=== PATIENT | male | born 1970 | race Caucasian/White ===

== ENCOUNTER 2020-01-15 11:24 | Emergency (ER) | payer BC, SELFPAY ==
[2020-01-15] VITALS (7 sets, daily range): BP systolic 123–144; BP diastolic 86–98; PULSE 61–77; RESP 10–18; TEMP 36.6; O2SAT 97–100
--- NOTE | ~2020-01-15 | XR_ITS ---
XR chest 2V DATE: 01/15/2020 12:04 INDICATION: Left chest pain. Shortness of breath. Smoker. Weakness. TECHNIQUE: PA and lateral views COMPARISON: 03/06/2018 2 view chest FINDINGS: Bilateral hyperinflation. No pulmonary infiltrate or consolidation, pleural effusion or pul monary vascular or pneumothorax. Normal heart size. No hilar or mediastinal enlargement. IMPRESSION: Bilateral hyperinflation consistent with history of COPD No active cardiopulmonary disease Reviewed, dictated and finalized at location A. IAL INVESTIGATOR
--- NOTE | 2020-01-15 11:32 | ECG_ITS ---
Measurements Intervals [place] Rate: 77 P: 73 OK: 148 QRS: -79 QRSD: 97 T: 55 QT: 358 QTc: 407 Interpretive Statements SINUS RHYTHM VENTRICULAR PREMATURE COMPLEXES POSSIBLE LEFT ATRIAL ENLARGEMENT INCOMPLETE RIGHT BUNDLE BRANCH BLOCK LEFT ANTERIOR FASCICULAR BLOCK ABNORMAL ECG Electronically Signed On 01-15-2020 16:05:48 COLLAR BASTER by Dell Olmos D.O.
--- NOTE | 2020-01-15 11:45 | ED.GENADULT ---
HPI - General Adult General Chief complaint: Chest Pain Stated complaint: cp/irregular pulse/sob Time Seen by Provider: 01/15/20 11:34 History of Present Illness HPI narrative: Patient is a 49-year-old male who presents ER with concerns for chest pain and irregular heartbeat. Reports last night 8 PM he began having some intermittent chest pain on the left side over his pectoralis. It will last for 1 minute then go away for 5 minutes or 20 minutes and return. No known injury. No exertional component. Tried Tylenol and ibuprofen without relief. Today he is taking his pulse and realized he was missing beats and he was only feels heartbeat and runs of 2-3 at a time. Unsure if it correlates with his chest pain. No lightheadedness or dizziness. Mild shortness of breath due to this. No runny nose/sore throat/productive cough. No known Covid contacts. No loss of taste or smell. Related Data Home Medications Medication Instructions Recorded Confirmed No Home Medications 01/15/20 01/15/20 Allergies Allergy/AdvReac Type Severity Reaction Status Date / Time Penicillins Allergy Unknown Vomiting Verified 01/15/20 11:40 Review of Systems Review of Systems: All systems reviewed & are unremarkable except as noted in HPI and below Constitutional: Constitutional: Denies chills, Denies fever(s) and Denies weakness Cardiovascular: Cardiovascular: Reports chest pain, Denies rapid heart rate and Denies radiating jaw, neck or arm pain Comments: Palpitations Respiratory: Respiratory: Denies cough and Reports dyspnea Gastrointestinal: Gastrointestinal: Denies nausea and Denies vomiting PMFSH Past Medical History Medical History (Updated 01/15/20 @ 13:13 by Berry Torres MD) Healthy adult male Surgical History Surgical History (Updated 01/15/20 @ 11:47 by Berry Torres MD) No history of previous surgery Family History Family History (Updated 05/26/16 @ 23:56 by DOCTOR UNKNOWN) Sibling Family history of gastrointestinal disorder Mother Family history of chronic obstructive pulmonary disease Father Family history of renal failure, Onset Age: 54 Patient's father is Social History Social History Smoking status: Heavy tobacco smoker Alcohol intake: current Gender identity (if verbalized by the patient): Male Exam Narrative: Exam Narrative: GENERAL: Well-appearing, well-nourished, and in no acute distress. HEAD: Normocephalic, atraumatic. CHEST: Clear to auscultation. No respiratory distress. 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 Normal peripheral pulses. ABDOMEN: Soft, nontender, nondistended. EXTREMITIES: Normal range of motion. No edema. SKIN: Warm, dry, no rash. NEURO: Alert and oriented x3. PSYCH: Normal mood and affect. Course Course Emergency Course: Patient informed of results. Chest pain is quite atypical. Troponin negative. PVCs of slow down. Recommend follow-up with PCP. May require outpatient Holter monitor if needed. Vital Signs Vital signs: Vital Signs Temperature 97.8 F 01/15/20 11:33 Pulse Rate 69 01/15/20 11:33 Respiratory Rate 18 01/15/20 11:33 Blood Pressure 144/98 H 01/15/20 11:33 Pulse Oximetry 100 01/15/20 11:33 Temperature 97.8 F 01/15/20 11:33 Pulse Rate 73 01/15/20 11:33 Respiratory Rate 18 01/15/20 11:33 Blood Pressure 144/98 H 01/15/20 11:33 Pulse Oximetry 100 01/15/20 11:33 Medical Decision Making Vital Signs Vital Signs: Vital Signs Temperature 97.8 F 01/15/20 11:33 Pulse Rate 69 01/15/20 11:33 Respiratory Rate 18 01/15/20 11:33 Blood Pressure 144/98 H 01/15/20 11:33 Pulse Oximetry 100 01/15/20 11:33 Temperature 97.8 F 01/15/20 11:33 Pulse Rate 73 01/15/20 11:33 Respiratory Rate 18 01/15/20 11:33 Blood Pressure 144/98 H 01/15/20 11:33 Pulse Oximetry 100
[2020-01-15] MEDS: ASPIRIN 81 MG CHEWABLE TABLET 324 MG PO (11:57)
[2020-01-15] MEDS: KETOROLAC 15 MG/ML VIAL (*BKC) IV PUSH (11:58)
[2020-01-15 12:00] LABS: Basophils Absolute Auto 0.1 K/mm3 (0.0-0.1); Basophils Percent Auto 1.4 % (0.2-1.2); Eosinophils Absolute Auto 0.4 K/mm3 (0-0.3); Eosinophils Percent Auto 4.6 % (0-4.4); Hematocrit 45.1 % (42.0-52.0); Hemoglobin 15.7 g/dL (14.0-18.0); Immature Granulocyte Absolute 0.02 K/mm3 (0.00-0.031); Immature Granulocyte Percent A 0.2 % (0-0.5); Lymphocytes Absolute Auto 3.67 K/mm3 (0.9-3.2); Mean Corpuscular HGB Conc 34.8 g/dl (32-36); Mean Corpuscular Hemoglobin 31.7 pg (26-34); Mean Corpuscular Volume 91.1 fl (80-100); Mean Platelet Volume 9.6 fl (7.4-10.4); Monocytes Absolute Auto 0.8 K/mm3 (0.1-0.6); Neutrophils Absolute Auto 4.4 K/mm3 (1.3-6.7); Neutrophils Percent Auto 46.8 % (45.5-73.1); Platelet Count Result 206 k/mm3 (150-375); Red Blood Count 4.95 M/mm3 (4.6-6.20); Red Cell Distribution Width 12.7 % (11.5-14.5); White Blood Count 9.4 K/mm3 (4.5-10.0)
[2020-01-15 12:08] LABS: INR 0.9
[2020-01-15 12:11] LABS: Anion Gap 8 mmol/L (8-16); Blood Urea Nitrogen 17 mg/dL (9-20); Calcium 9.3 mg/dL (8.4-10.2); Carbon Dioxide 28 mmol/L (22-30); Chloride 104 mmol/L (98-107); Estimated CRCL calculation 85 ml/min; Estimated Glomerular Filt Rate > 60; Glucose 93 mg/dL (75-110); Magnesium 2.1 mg/dL (1.6-2.3); Potassium 4.3 mmol/L (3.4-5.0); Sodium 140 mmol/L (137-145)
[2020-01-15 12:22] LABS: Troponin I < 0.012 ng/mL (0.000-0.034)
== END 2020-01-15 13:50 | disposition home or self-care (01) ==
PROVIDERS: Emergency Provider Emergency Medicine; PCP Family Medicine
DX: R07.89 Other chest pain (principal); I49.3 Ventricular premature depolarization; F17.200 Nicotine dependence, unspecified, uncomplicated; I45.2 Bifascicular block; R94.31 Abnormal electrocardiogram [ECG] [EKG]
CPT/HCPCS: 36415; 71046; 80048; 83735; 84484; 85025; 85610; 85730; 93005; 96374; 99284; A9270; J1885

== ENCOUNTER 2020-02-25 18:29 | Emergency (ER) | payer BC, SELFPAY ==
[2020-02-25 19:00] VITALS: BP 128/95; PULSE 66; RESP 16; TEMP 36.4; O2SAT 100
--- NOTE | 2020-02-25 19:04 | ED.ABDPAIN ---
HPI - Abdominal Pain General Chief Complaint: Unspecified <Kareem Rojas PA-C - Last Filed: 02/25/20 19:13> Stated Complaint: not feeling good. needs cleared for work <Kareem Rojas PA-C - Last Filed: 02/25/20 19:13> Time Seen by Provider: 02/25/20 18:32 <Kareem Rojas PA-C - Last Filed: 02/25/20 19:13> Source: patient <Kareem Rojas PA-C - Last Filed: 02/25/20 19:13> Mode of arrival: ambulatory <Kareem Rojas PA-C - Last Filed: 02/25/20 19:13> Limitations: no limitations <Kareem Rojas PA-C - Last Filed: 02/25/20 19:13> History of Present Illness HPI narrative: Patient is a 49-year-old male who presents to emergency department for evaluation of waking up this morning with GI upset that was short-lived and resolved on arrival patient has no symptoms denies any complaints notes that yesterday felt fine denies vomiting diarrhea rectal bleeding melena or hematemesis or URI symptom. <Kareem Rojas PA-C - Last Filed: 02/25/20 19:13> Related Data Home Medications: Home Medications Medication Instructions Recorded Confirmed No Home Medications 01/15/20 01/15/20 <Kareem Rojas PA-C - Last Filed: 02/25/20 19:13> Allergies/Adverse Reactions: Allergies Allergy/AdvReac Type Severity Reaction Status Date / Time Penicillins Allergy Unknown Vomiting Verified 01/15/20 11:40 <Kareem Rojas PA-C - Last Filed: 02/25/20 19:13> Review of Systems Review of Systems: All systems reviewed & are unremarkable except as noted in HPI and below <Kareem Rojas PA-C - Last Filed: 02/25/20 19:13> [facility] Past Medical History Medical History: Medical History Healthy adult male <Kareem Rojas PA-C - Last Filed: 02/25/20 19:13> Surgical History Surgical History: Surgical History No history of previous surgery <Kareem Rojas PA-C - Last Filed: 02/25/20 19:13> Family History Family History: Family History (Updated 05/26/16 @ 23:56 by DOCTOR UNKNOWN) Sibling Family history of gastrointestinal disorder Mother Family history of chronic obstructive pulmonary disease Father Family history of renal failure, Onset Age: 54 Patient's father is <Kareem Rojas PA-C - Last Filed: 02/25/20 19:13> Social History Social History: Social History Smoking status: Heavy tobacco smoker Alcohol intake: current Gender identity (if verbalized by the patient): Male <Kareem Rojas PA-C - Last Filed: 02/25/20 19:13> Exam Narrative: Exam Narrative: GENERAL: Well-appearing, well-nourished, and in no acute distress. HEAD: Normocephalic, atraumatic. EYES: PERRLA and EOMI. ENT: Nares clear, no rhinorrhea or epistaxis. Mucous membranes moist. CHEST: Clear to auscultation. No respiratory distress. No wheezes rales or rhonchi HEART: Regular rate and rhythm. No murmur heard. Normal peripheral pulses. ABDOMEN: Soft, nontender, nondistended EXTREMITIES: Normal range of motion. No edema. SKIN: Warm, dry, no rash. NEURO: No focal deficits. Alert and oriented x3. PSYCH: Normal mood and affect. <Kareem Rojas PA-C - Last Filed: 02/25/20 19:13> Course Course Emergency Course: Patient in the ER no complaints symptoms resolved nontender abdominal exam felt appropriate for discharge home <Kareem Rojas PA-C - Last Filed: 02/25/20 19:13> Vital Signs Vital signs: Vital Signs Temperature 36.4 C L 02/25/20 19:00 Pulse Rate 66 02/25/20 19:00 Respiratory Rate 16 02/25/20 19:00 Blood Pressure 128/95 H 02/25/20 19:00 Pulse Oximetry 100 02/25/20 19:00 Temperature 36.4 C L 02/25/20 19:00 Pulse Rate 66 02/25/20 19:00 Respiratory Rate 16 02/25/20 19:00 Blood Pressure 128/95 H 02/25/20 19:0
== END 2020-02-25 19:22 | disposition home or self-care (01) ==
PROVIDERS: Emergency Provider Emergency Medicine; PCP Family Medicine
DX: R10.9 Unspecified abdominal pain (principal)
CPT/HCPCS: 99281

== ENCOUNTER 2021-11-07 13:19 | Outpatient (CLI) | payer BC, SELFPAY ==
[2021-11-07 20:33] LABS: Basophils Absolute Auto 0.1 K/mm3 (0.0-0.1); Basophils Percent Auto 0.8 % (0.2-1.2); Eosinophils Absolute Auto 0.3 K/mm3 (0-0.3); Eosinophils Percent Auto 1.9 % (0-4.4); Hematocrit 45.8 % (42.0-52.0); Immature Granulocyte Absolute 0.04 K/mm3 (0.00-0.031); Immature Granulocyte Percent A 0.2 % (0-0.5); Lymphocytes Absolute Auto 3.38 K/mm3 (0.9-3.2); Lymphocytes Percent Auto 21.1 % (18.3-44.2); Mean Corpuscular HGB Conc 33.4 g/dl (32-36); Mean Corpuscular Volume 92.7 fl (80-100); Mean Platelet Volume 9.7 fl (7.4-10.4); Monocytes Absolute Auto 1.1 K/mm3 (0.1-0.6); Monocytes Percent Auto 6.5 % (2.6-8.5); Neutrophils Absolute Auto 11.2 K/mm3 (1.3-6.7); Neutrophils Percent Auto 69.5 % (45.5-73.1); Platelet Count Result 297 k/mm3 (150-375); Red Blood Count 4.94 M/mm3 (4.6-6.20); Red Cell Distribution Width 12.2 % (11.5-14.5); White Blood Count 16.1 K/mm3 (4.5-10.0)
[2021-11-07 21:04] LABS: Hemoglobin 15.3 g/dL (14.0-18.0)
[2021-11-07 21:13] LABS: Alanine Aminotransferase 14 U/L (6-50); Albumin Level 4.2 g/dL (3.5-5.1); Alkaline Phosphatase 83 U/L (38-126); Anion Gap 10 mmol/L (8-16); Aspartate Amino Transferase 28 U/L (17-59); Bilirubin,Total 0.3 mg/dL (0.2-1.3); Blood Urea Nitrogen 8 mg/dL (9-20); Calcium 8.8 mg/dL (8.4-10.2); Carbon Dioxide 27 mmol/L (22-30); Chloride 103 mmol/L (98-107); Cholesterol 162 mg/dL (0-200); Estimated Glomerular Filt Rate > 60; Glucose 83 mg/dL (65-110); HDL Direct 35 mg/dL; Potassium 4.1 mmol/L (3.4-5.0); Sodium 140 mmol/L (137-145); Triglycerides 123 mg/dL (<150)
[2021-11-07 21:25] LABS: LDL Cholesterol Direct 96 mg/dL
[2021-11-07 21:42] LABS: Prostate Specific Antigen 0.2 ng/mL (< OR = 4.0); Thyroid Stimulating Hormone 0.913 uIU/mL (0.465-4.680)
== END 2021-11-07 13:20 | disposition home or self-care (01) ==
LOC: ANHGOSHLAB 13:22
PROVIDERS: PCP Internal Medicine; Visit Provider Clinical Nurse Specialist
DX: R00.2 Palpitations (principal); Z13.228 Encounter for screening for other metabolic disorders; Z13.220 Encounter for screening for lipoid disorders; Z12.5 Encounter for screening for malignant neoplasm of prostate
CPT/HCPCS: 36415; 80053; 80061; 84153; 84443; 85025; G0103

== ENCOUNTER → 2021-11-07 13:43 | Outpatient (CLI) | payer BC, SELFPAY ==
--- NOTE | ~2021-11-07 | XR_ITS ---
XR lumbar spine 2-3V DATE: 11/07/2021 14:03 INDICATION: Low back pain TECHNIQUE: AP, lateral, coned lateral lumbosacral views COMPARISON: 10/07/2013 lumbar spine FINDINGS: There is mild levoscoliosis of the lumbar spine. No fracture or bone destruction is detected. The lumbar and included lower thoracic pedicles are inta ct. Lumbar and lumbosacral interspaces appear relatively well preserved. Minimal degenerative spurrin g. The sacroiliac joints are intact. IMPRESSION: Mild levoscoliosis and mild degenerative spurring Reviewed, dictated and finalized at location B.
== END ==
PROVIDERS: PCP Clinical Nurse Specialist; Visit Provider Clinical Nurse Specialist
DX: M54.50 Low back pain, unspecified (principal)
CPT/HCPCS: 72100

== ENCOUNTER 2021-11-16 12:48 | Outpatient (CLI) | payer BC, SELFPAY ==
--- NOTE | ~2021-11-16 | MR_ITS ---
EXAMINATION: MR lumbar spine wo con DATE: 11/16/2021 13:41 INDICATION: Low back pain. TECHNIQUE: Magnetic resonance imaging (MRI) of the lumbar spine was performed without intravenous con trast. Sequences included sagittal T2-weighted FSE, sagittal T2-weighted FS FSE, sagittal T1-weighted FSE, and axial T2-weighted FSE. COMPARISON: Lumbar spine radiographs 11/07/2021 FINDINGS: There is 4 degrees levocurvature of lumbar spine. There is mild chronic anterior wedging of T12 vertebral body. There is mildly decreased disc height from L2-L3 through L4-L5. The distal spina l cord signal intensity is normal. The conus medullaris is at L1. The following disc levels are speci fically discussed: L1-L2: The disc does not extend beyond the endplate margin. There is mild bilateral facet joint osteo arthritis. There is no neural foraminal stenosis. There is no central canal stenosis. L2-L3: The disc is mildly bulging. There is mild bilateral facet joint osteoarthritis. There is mild bilateral neural foraminal stenosis. There is no central canal stenosis. L3-L4: The disc is bulging. There is moderate bilateral facet joint osteoarthritis. There is mild mely ateral neural foraminal stenosis. There is mild central canal stenosis. L4-L5: The disc is bulging. There is mild bilateral facet joint osteoarthritis. There is mild bilater al neural foraminal stenosis. There is mild central canal stenosis. L5-S1: The disc is bulging. There is mild bilateral facet joint osteoarthritis. There is mild bilater al neural foraminal stenosis. There is mild central canal stenosis. IMPRESSION: 1. Mild lumbar spondylosis. Reviewed, dictated and finalized at location A. IMPRESSION: 1. Mild lumbar spondylosis.
== END 2021-11-16 12:49 ==
PROVIDERS: PCP Internal Medicine; Visit Provider Clinical Nurse Specialist
DX: M54.50 Low back pain, unspecified (principal); M47.816 Spondylosis without myelopathy or radiculopathy, lumbar region
CPT/HCPCS: 72148

== ENCOUNTER → 2023-03-08 15:52 | Outpatient (CLI) | payer BC, SELFPAY ==
--- NOTE | ~2023-03-08 | XR_ITS ---
EXAMINATION: XR_CERV2-3V_CR DATE: 03/08/2023 16:07 INDICATION: Anesthesia of skin. Generalized neck pain. TECHNIQUE: 3 views of the cervical spine were obtained. COMPARISON: Cervical spine radiographs 10/07/2013 FINDINGS: There is 2 mm retrolisthesis of C4 on C5 and C5 on C6. Vertebral body heights are normal. T here is severely decreased disc height at C4-C5 and C5-C6. There is multilevel uncovertebral joint os teoarthritis, severe bilaterally at C4-C5 and C5-C6. There is multilevel mild facet joint osteoarthri tis. There is mild central canal stenosis at C4-C5 and C5-C6. No prevertebral soft tissue swelling. IMPRESSION: 1. Severe cervical spondylosis, worsened from 10/07/2013. Reviewed, dictated and finalized at location E. 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
== END ==
PROVIDERS: PCP Clinical Nurse Specialist; Visit Provider Clinical Nurse Specialist
DX: R20.0 Anesthesia of skin (principal); R20.2 Paresthesia of skin; M47.892 Other spondylosis, cervical region
CPT/HCPCS: 72040

== ENCOUNTER 2023-03-15 11:30 | Outpatient (CLI) | payer BC, SELFPAY ==
--- NOTE | ~2023-03-15 | MR_ITS ---
MRI of the cervical spine Clinical History: Stenosis Technique: Axial T2-weighted and gradient images, and sagittal T1-weighted, T2-weighted, and STIR oseas ges were acquired. Findings: There is no fracture or subluxation of the cervical spine. Vertebral bodies maintain normal height and alignment. There are reactive marrow signal changes about the C4-C5 disc space due to und erlying degenerative disc disease. At C2-C3, there is no disc bulge or herniation. No spinal canal stenosis, cord compression, or neural foraminal narrowing. At C3-C4, there is no disc bulge or herniation. No spinal canal stenosis, cord compression, or neural foraminal narrowing. At C4-C5, there is disc osteophyte complex, with mild canal stenosis but no dianna cord compression. T here is probable bilateral neural foraminal narrowing with mild facet arthropathy bilaterally. At C5-C6, there is disc osteophyte complex with mild canal stenosis but no dianna cord compression. Th ere is bilateral neural foraminal narrowing, right worse than left. At C6-C7, there is minimal disc osteophyte complex. No spinal canal stenosis or cord compression. Pos sible minimal right neural foraminal narrowing. Left neural foramen preserved. No abnormal signal seen in the spinal cord. Paravertebral soft tissues are unremarkable. Impression: Moderate degenerative spondylosis, as above. Reviewed, dictated and finalized at [facility]. 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
== END 2023-03-15 11:31 ==
LOC: GOSHIMG 11:31
PROVIDERS: PCP Internal Medicine; Visit Provider Clinical Nurse Specialist
DX: M47.812 Spondylosis without myelopathy or radiculopathy, cervical region (principal)
CPT/HCPCS: 72141

== ENCOUNTER 2023-04-04 09:19 | Outpatient (CLI) | payer BC, SELFPAY ==
--- NOTE | 2023-04-04 11:30 | NEURO_ITS ---
Impression: # Non-diabetic complains of numbness of lower extremities. History of degenerative disc disease. # Normal Nerve Conduction Study except absent Saphenous sensory response. # Needle/EMG exam reveals decreased motor unit potentials in left EDB but no acute changes. # Clinical correlation recommended. Nerve Conduction Studies Anti Sensory Summary Table Stim Site NR Peak (ms) P-T Amp (?V) Site1 Site2 Delta-P (ms) Dist (cm) Crow (m/s) Left Saphenous Anti Sensory (Ant Med Mall) NO RESPONSE 14cm NR 14cm Ant Med Mall 0.0 Right Saphenous Anti Sensory (Ant Med Mall) NO RESPONSE 14cm NR 14cm Ant Med Mall 0.0 Left Sup Fibular Anti Sensory (Ant Lat Mall) 14 cm 3.2 14.8 14 cm Ant Lat Mall 3.2 16.0 50 Right Sup Fibular Anti Sensory (Ant Lat Mall) 14 cm 4.0 5.9 14 cm Ant Lat Mall 4.0 16.0 40 Left Sural Anti Sensory (Lat Mall) NO RESPONSE Calf 3.9 8.2 Calf Lat Mall 3.9 16.0 41 Right Sural Anti Sensory (Lat Mall) Calf 3.9 17.9 Calf Lat Mall 3.9 16.0 41 Motor Summary Table Stim Site NR Onset (ms) O-P Amp (mV) Site1 Site2 Delta-0 (ms) Dist (cm) Crow (m/s) Left Peroneal Motor (Vastus Med) Ankle 4.5 1.8 Popit Ankle 10.0 41.0 41 Popit 14.5 1.2 Right Peroneal Motor (Vastus Med) Ankle 4.3 1.0 Popit Ankle 9.2 43.0 47 Popit 13.5 1.3 Left Tibial Motor (Abd Hess Brev) Ankle 4.5 2.5 Knee Ankle 11.0 46.0 42 Knee 15.5 1.2 Right Tibial Motor (Abd Hess Brev) Ankle 4.2 5.2 Knee Ankle 10.6 44.0 42 Knee 14.8 3.5 F Wave Studies NR F-Lat (ms) L-R F-Lat (ms) Left Peroneal (Mrkrs) (EDB) 54.78 1.42 Right Peroneal (Mrkrs) (EDB) 53.36 1.42 Left Tibial (Mrkrs) (Abd Hallucis) 54.69 0.78 Right Tibial (Mrkrs) (Abd Hallucis) 53.91 0.78 EMG Side Muscle Nerve Root Ins Act Fibs Amp Dur Recrt Comment Right AntTibialis Dp Br Fibular L4-5 Nml Nml Nml Nml Nml Right Gastroc Tibial S1-2 Nml Nml Nml Nml Nml Right Fibularis Long Sup Br Fibular L5-S1 Nml Nml Nml Nml Nml Right Flex Dig Long Tibial L5-S2 Nml Nml Nml Nml Nml Right Ext Dig Brev Dp Br Fibular L5, S1 Nml Nml Nml Nml Nml Left AntTibialis Dp Br Fibular L4-5 Nml Nml Nml Nml Nml Left Gastroc Tibial S1-2 Nml Nml Nml Nml Nml Left Fibularis Long Sup Br Fibular L5-S1 Nml Nml Nml Nml Nml Left Flex Dig Long Tibial L5-S2 Nml Nml Nml Nml Nml Left Ext Dig Brev Dp Br Fibular L5, S1 Nml Nml Nml Nml Reduced Right Ext Dig Long Dp Br Fibular L5-S1 Nml Nml Nml Nml Nml Left Ext Dig Long Dp Br Fibular L5-S1 Nml Nml Nml Nml Nml MTDD
== END 2023-04-04 09:20 | disposition home or self-care (01) ==
PROVIDERS: PCP Internal Medicine; Visit Provider Clinical Nurse Specialist
DX: R20.0 Anesthesia of skin (principal); R20.2 Paresthesia of skin
CPT/HCPCS: 95886; 95911

== ENCOUNTER 2024-07-31 10:27 | Observation (INO) | payer OTHER, SELFPAY ==
[2024-07-31] VITALS (12 sets, daily range): BP systolic 104–137; BP diastolic 62–93; PULSE 51–72; RESP 16–20; TEMP 36.6; O2SAT 97–100; BMI 18.8
--- NOTE | ~2024-07-31 | XR_ITS ---
EXAMINATION: XR chest 2V 07/31/2024 10:57 INDICATION: Chest pain and shortness of breath. Cough. PROCEDURE: 2 view chest COMPARISON: 01/15/2020 FINDINGS: The lungs are clear. The cardiomediastinal silhouette is within normal limits. There are no pleural effusions. There is no pneumothorax suspected. Stable upper lobe scarring. IMPRESSION: 1: NO ACUTE CARDIOPULMONARY DISEASE. Reviewed, dictated and finalized at location B.
--- NOTE | ~2024-07-31 | NM_ITS ---
EXAMINATION: NM stress w perf spect multi DATE: 08/01/2024 12:52 INDICATION: Chest pain TECHNIQUE: Rest images were obtained following intravenous administration of 10 mCi Tc99m tetrofosmin (Myoview). The patient performed an exercise activity. At peak exercise, 31.9 mCi Tc99m tetrofosmin (Myoview) was administered intravenously, and stress images were obtained. Data was reconstructed int o short axis and horizontal and vertical long axis SPECT images. Gated SPECT images were also obtaine d. COMPARISON: None. FINDINGS: There is normal left ventricular perfusion without definite evidence of reversible or fixed perfusion abnormality to suggest ischemia or infarction. There is normal left ventricular chamber size, wall m otion and ejection fraction. Left ventricular ejection fraction measures >70%. IMPRESSION: 1. Normal myocardial perfusion at rest and during stress. 2. Left ventricular ejection fraction measuring >70%. Reviewed, dictated and finalized at location A.
--- NOTE | 2024-07-31 10:28 | ECG_ITS ---
Test Date: 2024-07-31 10:36:03 Measurements Intervals [place] Rate: 69 P: 78 [place]: 157 QRS: -59 QRSD: 93 T: 47 QT: 357 QTc: 385 Interpretive Statements SINUS RHYTHM WITH SINUS ARRHYTHMIA INCOMPLETE RIGHT BUNDLE BRANCH BLOCK LEFT ANTERIOR FASCICULAR BLOCK PEAKED T WAVES- CONSIDER HYPERKALEMIA ABNORMAL ECG No previous ECG available for comparison Electronically Signed On 07-31-2024 12:10:33 CDT by Dell Olmos D.O.
[2024-07-31 10:39] LABS: Basophils Absolute Auto 0.1 K/mm3 (0.0-0.1); Basophils Percent Auto 0.9 % (0.2-1.2); Eosinophils Absolute Auto 0.2 K/mm3 (0-0.3); Eosinophils Percent Auto 2.9 % (0-4.4); Hematocrit 43.4 % (42.0-52.0); Hemoglobin 14.8 g/dL (14.0-18.0); Immature Granulocyte Absolute 0.02 K/mm3 (0.00-0.031); Immature Granulocyte Percent A 0.2 % (0-0.5); Lymphocytes Absolute Auto 2.61 K/mm3 (0.9-3.2); Lymphocytes Percent Auto 31.7 % (18.3-44.2); Mean Corpuscular HGB Conc 34.1 g/dl (32-36); Mean Corpuscular Hemoglobin 29.3 pg (26-34); Mean Corpuscular Volume 85.9 fl (80-100); Mean Platelet Volume 9.1 fl (7.4-10.4); Monocytes Absolute Auto 0.5 K/mm3 (0.1-0.6); Monocytes Percent Auto 6.3 % (2.6-8.5); Neutrophils Absolute Auto 4.8 K/mm3 (1.3-6.7); Platelet Count Result 226 k/mm3 (150-375); Red Blood Count 5.05 M/mm3 (4.6-6.20); Red Cell Distribution Width 12.8 % (11.5-14.5); White Blood Count 8.2 K/mm3 (4.5-10.0)
[2024-07-31 10:49] LABS: Alanine Aminotransferase 17 U/L (6-50); Albumin Level 4.4 g/dL (3.5-5.1); Alkaline Phosphatase 65 U/L (38-126); Anion Gap 7 mmol/L (4-12); Aspartate Amino Transferase 23 U/L (17-59); Bilirubin,Total 0.5 mg/dL (0.2-1.3); Blood Urea Nitrogen 13 mg/dL (9-20); Calcium 9.6 mg/dL (8.4-10.2); Carbon Dioxide 25 mmol/L (22-30); Chloride 105 mmol/L (98-107); Estimated CRCL calculation 79 ml/min; Estimated Glomerular Filt Rate > 60; Glucose 102 mg/dL (65-110); Lipase 96 U/L (23-300); Potassium 4.4 mmol/L (3.4-5.0); Sodium 137 mmol/L (137-145); Total Protein 7.5 g/dL (6.3-8.2)
[2024-07-31 10:56] LABS: Prothrombin Time 13.2 Seconds (11.1-14.7)
--- NOTE | 2024-07-31 11:00 | ED.CHESTPAIN ---
HPI - Chest Pain General Chief Complaint: Chest Pain Stated Complaint: chest pain Time Seen by Provider: 07/31/24 10:29 Source: patient Mode of arrival: ambulatory Limitations: no limitations History of Present Illness HPI narrative: This is a 54-year-old male, with no significant past medical history, presents to the emergency department complaining of substernal dull chest pain that peak can 3 hours ago and lasted approximately 2 hours. The patient states he was at rest when this began. It is associated with some shortness of breath. He denies radiation, nausea, vomiting or lightheadedness. He states this is the 3rd time this has happened in the past month. He states previous workups have been negative. He has no other complaints at this time. Related Data Allergies Allergy/AdvReac Type Severity Reaction Status Date / Time Penicillins Allergy Unknown Vomiting Verified 02/28/23 14:04 Review of Systems Review of Systems: All systems reviewed & are unremarkable except as noted in HPI and below PMFSH Past Medical History Medical History Acute bronchitis, unspecified Smoker Heart palpitations Healthy adult male Surgical History Surgical History No history of previous surgery Family History Family History Sibling Family history of gastrointestinal disorder Mother Family history of chronic obstructive pulmonary disease Hypertension Heart problem Father Family history of renal failure, Onset Age: 54 Patient's father is Grandparent Cancer Social History Social History Social History: Raman has had his tetanus vaccine, does eat a healthy diet and exercise. He does drink coffee, tea and cola 4 cups/day. He does not drink alcohol. 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 HEAD: Normocephalic, atraumatic. EYES: PERRLA and EOMI. CHEST: Minimal rales are noted in the right lower posterior lung fuller with otherwise clear breath sounds. Good aeration. No respiratory distress. No wheezes or rhonchi HEART: Regular rate and rhythm. No murmur heard. Normal peripheral pulses. ABDOMEN: Soft, mildly tender palpation in the epigastrium, without rebound or guarding, nondistended, normal active bowel sounds. EXTREMITIES: Normal range of motion. No edema. SKIN: Warm, dry, no rash. NEURO: Alert and oriented x3. No focal deficit. Moving all 4 limbs spontaneously PSYCH: Normal mood and affect. Course Course Emergency Course: 11:56 - Initial EKG demonstrates left anterior fascicular block and left axis deviation. Initial troponin negative. Heart score 4. CBC unremarkable. Chemistries within normal limits. Chest x-ray not concerning for acute cardiopulmonary process. I discussed these findings with the patient with recommendation for observation. He voiced understanding and is comfortable with plan. I discussed the patient with Cardiology STRUCTURAL ENGINEERING DRAFTING OFFICER Jenni who agrees to consult. 12:07- I discussed the patient with hospitalist KVNG Arenas who accepts admission. Vital Signs Vital signs: Vital Signs Temperature 97.9 F 07/31/24 10:30 Pulse Rate 07/31/24 10:30 Respiratory Rate 07/31/24 10:30 Blood Pressure 137/93 H 07/31/24 10:30 Pulse Oximetry 99 07/31/24 10:30 Oxygen Delivery Room Air 07/31/24 10:30 Temperature 97.9 F 07/31/24 10:30 Pulse Rate 69 07/31/24 10:30 Respiratory Rate 20 07/31/24 10:30 Blood Pressure 137/93 H 07/31/24 10:30 Pulse Oximetry 99 07/31/24 10:30 Oxygen Delivery Room Air 07/31/24 10:30 MDM - Chest Pain MDM Narrative Medical decision making narrative: Plan: Labs, EKG, troponin, imaging, pain control, reassess Differential Diagnosis Differential diagnosis: Likely pneumothorax and other (ACS, gastritis, peptic ulcer disease, pancreatitis, metabolic abnormality, costochondritis, other) Lab Data 07/31/24 10:34 07/31/24 10:33 Labs: Lab Results 07/31/24 07/31/24 Range/Units 10:33 10:34 WBC 8.2 (4.5-10.0) K/mm3 RBC 5.05 (4.6-6.20) M/mm3 Hgb 14.8 (14.0-18.0) g/dL Hct 43.4 (42.0-52.0) % MCV 85.9 (80-100) fl MCH 29.3 (26-34) pg MCHC 34.1 (32-36) g/dl RDW 12.8 (11.5-14.5) % Plt Count 226 (150-375) k/mm3 MPV 9.1 (7.4-10.4) fl Immature Gran % (Auto) 0.2 (0-0.5) % Neut % (Auto) 58.0 (45.5-73.1) % Lymph % (Auto) 31.7 (18.3-44.2) % Emmons % (Auto) 6.3 (2.6-8.5) % Eos % (Auto) 2.9 (0-4.4) % Baso % (Auto) 0.9 (0.2-1.2) % Lymph # (Auto) 2.61 (0.9-3.2) K/mm3 Emmons # (Auto) 0.5 (0.1-0.6) K/mm3 Eos # (Auto) 0.2 (0-0.3) K/mm3 Baso # (Auto) 0.1 (0.0-0.1) K/mm3 Abs Immat Gran (auto) 0.02 (0.00-0.031) K/mm3 Absolute Neuts (auto) 4.8 (1.3-6.7) K/mm3 Absolute Nucleated RBC 0.000 (0.0-0.012) K/mm3 Nucleated RBC % 0.0 (0.0-0.2) % PT 13.2 (11.1-14.7) Seconds INR 1.0 APTT 29.0 (22.3-36.8) Seconds Sodium 137 (137-145) mmol/L Potassium 4.4 (3.4-5.0) mmol/L Chloride 105 (98-107) mmol/L Carbon Dioxide 25 (22-30) mmol/L Anion Gap 7 (4-12) mmol/L BUN 13 D (9-20) mg/dL Creatinine 0.90 (0.7-1.3) mg/dL Estim Creat Clear Calc 79 ml/min Estimated GFR > 60 (59 - ) Glucose 102 (65-110) mg/dL Calcium 9.6 (8.4-10.2) mg/dL Total Bilirubin 0.5 (0.2-1.3) mg/dL AST 23 (17-59) U/L ALT 17 (6-50) U/L Alkaline Phosphatase 65 (38-126) U/L Troponin I < 0.012 (0.000-0.034) ng/mL Total Protein 7.5 (6.3-8.2) g/dL Albumin 4.4 (3.5-5.1) g/dL Lipase 96 (23-300) U/L ECG Data EKG #1: Attestation: I personally reviewed and interpreted this ECG as follows: ECG completion date: 07/31/24 ECG completion time: 10:36 Prior ECG tracings: not available for review Interpretation: Sinus rhythm, rate 69, left axis deviation, left anterior fascicular block, no ST segment elevations or T-wave inversions concerning for ischemia, normal intervals with QTC of 377. Discharge Plan Discharge Clinical Impression: Chest pain Qualifiers: Chest pain type: unspecified Qualified Code(s): R07.9 - Chest pain, unspecified Patient Disposition: Still a Patient Condition: Stable Patient Language: [place] Prescriptions: No Action methylprednisolone [Medrol (Bertrand)] 4 mg tablets,dose pack See Rx Instructions PO PER PKG DIR Qty: 21 0RF Rx Instructions: PO PER PKG DIR Follow-up/Referrals: Damián Gregory DO [Primary Care Provider] - Time of Disposition: 12:07
[2024-07-31 11:01] LABS: Troponin I < 0.012 ng/mL (0.000-0.034)
[2024-07-31] MEDS: ASPIRIN 81 MG CHEWABLE TABLET 324 MG PO (11:18)
--- NOTE | 2024-07-31 12:59 | P.HP_ITS ---
H&P: HPI History of Present Illness Date/Time: 07/31/24 12:59 Chief Complaint: Chest Pain/ pressure Narrative: 54-year-old male previously healthy presents the emergency room with chest pain and pressure. Patient states that he has had chest pain or pressure for about the last 4 years. 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 It lasted longer than normal. He states that he became very concerned because it has been happening more frequently and more intense and now at rest and started with activities. Patient denies diaphoresis, nausea vomiting, left arm pain. In the patient's lab work showed CBC within normal limits, BMP within normal limits, 1st troponin negative, chest x-ray with no cardiopulmonary process. EKG shows sinus rhythm with incomplete right bundle-branch block and left anterior fascicular block Patient's heart score is 4 and Cardiology recommends admission for cardiac workup. Review of Systems Review of Systems: 12 systems were reviewed and are negativ e except for as per HPI. [facility] Past Medical History Medical History Acute bronchitis, unspecified Smoker Heart palpitations Healthy adult male Surgical History Surgical History No history of previous surgery Family History Family History (Updated 07/31/24 @ 13:29 by Ayala Alvarez RN) Sibling Family history of gastrointestinal disorder Mother Heart problem Family history of chronic obstructive pulmonary disease Hypertension Father Patient's father is Family history of renal failure, Onset Age: 54 Grandparent Cancer Heart valve replaced Social History Social History Social History: Raman has had his tetanus vaccine, does eat a healthy diet and exercise. He does drink coffee, tea and cola 4 cups/day. He does not drink alcohol. Smoking packs per day: 0.50 Smoking cigarettes per day: 10.0 Years smoked: 38 Smoking pack-years: 19.00 Smoking status: Current every day smoker Tobacco type: cigarettes and e-cigarettes/vaping Additional smoking assessment comments: vapes all day in addition to smoking cigarettes Alcohol intake: never Substance use: never Substance use type: does not use Do You Feel Safe in your Home?: Yes Lack of Transportation: No Lack of Food: Never True Current Housing: I Have Housing Concerned About Future Housing: No Difficulty Paying Gas/Electric Bills: No Difficulty Paying for Meds: No Currently Unemployed: No Education: High School Diploma/GED Difficulty w/ Childcare or Family Care: No Living arrangements: with family Occupation/Education: occupation Additional occupation/education comments: [employer] [place]) Gender identity (if verbalized by the patient): Male Sexual Orientation (if Verbalized by the Patient): Straight or Heterosexual Spiritual care concerns: No Agree to blood products: Yes Meds Home Medications and Allergies Home Medications ?Medication ?Instructions ?Recorded ?Confirmed ?Type No Home Medications 07/31/24 07/31/24 History Allergies Allergy/AdvReac Type Severity Reaction Status Date / Time Penicillins Allergy Unknown Vomiting Verified 07/31/24 12:49 Vital Signs Vital Signs - 24 hr 07/31/24 10:30 07/31/24 10:30 07/31/24 11:31 Temperature 97.9 F Pulse Rate 69 65 Respiratory Rate 20 20 Blood Pressure 137/93 H 125/87 Pulse Oximetry 99 97 Oxygen Delivery Room Air Room Air 07/31/24 12:30 07/31/24 12:45 07/31/24 12:47 Temperature Pulse Rate 60 61 61 Respiratory Rate 20 20 20 Blood Pressure 118/86 131/89 Pulse Oximetry 99 100 99 Oxygen Delivery Exam Narrative: General: well appearing, appears stated age. HEENT: normocephalic, atraumatic. Mucous membranes moist. EOMI, PERRLA, bilateral sclera anicteric, no conjunctival injection. Neck supple without JVD, lymphadenopathy, or bruit. Respiratory: clear to ascultation bilaterally. No rales/rhonic/wheezes. Cardiovascular: Regular rate and rhythm, normal S1-S2 upon ascultation. No murmurs, rubs, or clicks. PMI is nondisplaced, capillary refill less than 3 second. Abdomen: Soft, round, no pulsatile masses, nondistended and nontender. No rebou nd, no guarding. No CVA tenderness, no hepatosplenomegaly. Bowel sounds present to all four quadrants. No high pitch or tinkling sounds, resonant to percussion. Extremities: No cyanosis, clubbing, or edema present. Pulses are palpable 2/2. Active ROM to all four extremities. Neuro: Alert and orientated x 4. PERRLA. Cranial nerves 2-12 intact without focal deficit. Skin: Warm, dry, and intact, without rash, erythema, or lesion. Psych: pleasant, cooperative, normal speech, normal affect, no hallucinations, no dysarthia H&P: Results Labs Labs: Short CBC 07/31/24 Range/Units 10:34 WBC 8.2 (4.5-10.0) K/mm3 Hgb 14.8 (14.0-18.0) g/dL Hct 43.4 (42.0-52.0) % Plt Count 226 (150-375) k/mm3 BMP 07/31/24 10:33 Sodium 137 Potassium 4.4 Chloride 105 Carbon Dioxide 25 BUN 13 D Creatinine 0.90 Glucose 102 Calcium 9.6 Cardiac Enzymes 07/31/24 Range/Units 10:33 Troponin I < 0.012 (0.000-0.034) ng/mL Liver Function 07/31/24 Range/Units 10:33 Total Bilirubin 0.5 (0.2-1.3) mg/dL AST 23 (17-59) U/L ALT 17 (6-50) U/L Alkaline Phosphatase 65 (38-126) U/L Albumin 4.4 (3.5-5.1) g/dL Assessment and Plan Assessment and plan (1) Chest pain: Qualifiers: Chest pain type: unspecified Qualified Code(s): R07.9 - Chest pain, unspecified Code(s): R07.9 - Chest pain, unspecified Status: Acute Assessment and Plan: Heart score 4 Cardiology consulted Trend troponins with EKGs Nitro p.r.n. Okay for diet now, NPO midnight Lipid panel Echo pending Stress test pending NM stress test pending (2) Smoker: Code(s): F17.200 - Nicotine dependence, unspecified, uncomplicated Status: Acute Assessment and Plan: Nicotine patch Quality VTE Prophylaxis VTE prophylaxis: mechanical ordered and pharmacologic ordered Hospitalist MIPS Advance Care Plan I have confirmed that the patient's Advanced Care Plan is present, code status is documented, or surrogate decision maker is listed in patient medical record.: Yes Medication Reconciliation I have utilized all available resources to obtain, update and review the patients current medications (includes all prescriptions, OTC, herbals, cannabis, and nutritional supplements).: Yes
--- NOTE | 2024-07-31 13:36 | PC.NURSE ---
Patient placed on tele upon arrival.
[2024-07-31 14:29] LABS: Troponin I < 0.012 ng/mL (0.000-0.034)
--- NOTE | 2024-07-31 17:01 | P.CONCA_ITS ---
Assessment and Plan Assessment and plan (1) Chest pain: Qualifiers: Chest pain type: unspecified Qualified Code(s): R07.9 - Chest pain, unspecified Code(s): R07.9 - Chest pain, unspecified Status: Acute (2) Heart palpitations: Code(s): R00.2 - Palpitations Status: Acute (3) Tobacco abuse: Code(s): Z72.0 - Tobacco use Status: Acute Plan 54-year-old smoker presents with chest pain Chest pain -has since resolved and troponins negative -we had discussed inpatient versus outpatient ischemic evaluation -we have decided to proceed with inpatient transthoracic echocardiogram as well as a nuclear stress test with treadmill exercise testing Active tobacco abuse -we have discussed the need for tobacco cessation for 3 minutes -currently he does not want to start any medications to help with cessation Premature ventricular contractions -based on subjective history, the skipped heartbeats that he mention sound similar to premature ventricular contractions -we discussed that should he have further episodes of these and the above testing is negative and if these symptoms become more frequent, we can discuss in outpatient setting pursuing 30 day Holter monitor -his heart rate does not allow for addition of beta-tiffanie at this time History of Present Illness History of Present Illness Consult date/time: 07/31/24 17:01 Requesting physician: Leeanne Arenas APRN Consult reason: chest pain Reason For Visit: Chest Pain Narrative: 54-year-old smoker presents with chest pain. He has been having substernal chest pressure for few years now. He is would occur 2 to 3 times a year however he has noted that it has been starting to occur more frequently up 60 8 times a year now. This morning he started to have substernal chest pressure again that lasted for 2 hours and was advised to come to the emergency room for evaluation. He was at his desk working when the pain suddenly occur. Previously these pains were also last for about 30 minutes which is much less than today's episode. They would also be self-resolving. They are not clearly associated with physical activity. Denies any shortness of breath or syncopal events. He mention few years ago, when he was not emergency room and they found that he had few skipped heartbeats with no further evaluation. He works at the [employer] on the [place]. He is physically active on the short [place] and has not noticed any significant consistent cardiopulmonary limitations. Review of Systems 2 Cardiovascular: Cardiovascular: Reports as per HPI Respiratory: Respiratory: Reports as per HPI [facility] Past Medical History Medical History Acute bronchitis, unspecified Smoker Heart palpitations Healthy adult male Surgical History Surgical History No history of previous surgery Family History Family History (Updated 07/31/24 @ 13:29 by Ayala Alvarez RN) Sibling Family history of gastrointestinal disorder Mother Heart problem Family history of chronic obstructive pulmonary disease Hypertension Father Patient's father is Family history of renal failure, Onset Age: 54 Grandparent Cancer Heart valve replaced Social History Social History Social History: Raman has had his tetanus vaccine, does eat a healthy diet and exercise. He does drink coffee, tea and cola 4 cups/day. He does not drink alcohol. Smoking packs per day: 0.50 Smoking cigarettes per day: 10.0 Years smoked: 38 Smoking pack-years: 19.00 Smoking status: Current every day smoker Tobacco type: cigarettes and e-cigarettes/vaping Additional smoking assessment comments: vapes all day in addition to smoking cigarettes Alcohol intake: never Substance use: never Substance use type: does not use Do You Feel Safe in your Home?: Yes Lack of Transportation: No Lack of Food: Never True Current Housing: I Have Housing Concerned About Future Housing: No Difficulty Paying Gas/Electric Bills: No Difficulty Paying for Meds: No Currently Unemployed: No Education: High School Diploma/GED Difficulty w/ Childcare or Family Care: No Living arrangements: with family Occupation/Education: occupation Additional occupation/education comments: [employer] [place] [employer] ([place]) Gender identity (if verbalized by the patient): Male Sexual Orientation (if Verbalized by the Patient): Straight or Heterosexual Spiritual care concerns: No Agree to blood products: Yes Meds Home Medications and Allergies Home Medications ?Medication ?Instructions ?Recorded ?Confirmed ?Type No Home Medications 07/31/24 07/31/24 History Allergies Allergy/AdvReac Type Severity Reaction Status Date / Time Penicillins Allergy Unknown Vomiting Verified 07/31/24 12:49 Vital Signs Vital Signs - 24 hr 07/31/24 10:30 07/31/24 10:30 07/31/24 11:31 Temperature 36.6 C Pulse Rate 69 65 Respiratory Rate 20 20 Blood Pressure 137/93 H 125/87 Pulse Oximetry 99 97 Oxygen Delivery Room Air Room Air 07/31/24 12:30 07/31/24 12:45 07/31/24 12:47 Temperature Pulse Rate 60 61 61 Respiratory Rate 20 20 20 Blood Pressure 118/86 131/89 Pulse Oximetry 99 100 99 Oxygen Delivery 07/31/24 13:11 07/31/24 15:44 Temperature 36.6 C 36.6 C Pulse Rate 65 72 Respiratory Rate 18 18 Blood Pressure 106/77 119/65 Pulse Oximetry 100 99 Oxygen Delivery Exam 2 Const: General: comfortable HENMT: Mouth: Yes moist mucous membranes Eyes: EOM: EOMs intact bilaterally Neck: Neck: no JVD Resp: Effort & Inspection: normal respiratory effort Auscultation: clear to auscultation bilaterally Cardio: Rate: regular rate Rhythm: regular rhythm GI: GI Palp: Yes Soft to palpation Neuro: Speech: normal speech Extrem: General: no pedal edema Results Labs and Meds 07/31/24 10:34 07/31/24 10:33 Lab results: Cardiac Enzymes 07/31/24 07/31/24 Range/Units 10:33 13:50 AST 23 (17-59) U/L Troponin I < 0.012 < 0.012 (0.000-0.034) ng/mL Coagulation 07/31/24 Range/Units 10:33 PT 13.2 (11.1-14.7) Seconds APTT 29.0 (22.3-36.8) Seconds CBC 07/31/24 Range/Units 10:34 WBC 8.2 (4.5-10.0) K/mm3 RBC 5.05 (4.6-6.20) M/mm3 Hgb 14.8 (14.0-18.0) g/dL Hct 43.4 (42.0-52.0) % Plt Count 226 (150-375) k/mm3 Lymph # (Auto) 2.61 (0.9-3.2) K/mm3 Dewitt # (Auto) 0.5 (0.1-0.6) K/mm3 Eos # (Auto) 0.2 (0-0.3) K/mm3 Baso # (Auto) 0.1 (0.0-0.1) K/mm3 Comprehensive Metabolic Panel 07/31/24 Range/Units 10:33 Sodium 137 (137-145) mmol/L Potassium 4.4 (3.4-5.0) mmol/L Chloride 105 (98-107) mmol/L Carbon Dioxide 25 (22-30) mmol/L BUN 13 D (9-20) mg/dL Creatinine 0.90 (0.7-1.3) mg/dL Glucose 102 (65-110) mg/dL Calcium 9.6 (8.4-10.2) mg/dL AST 23 (17-59) U/L ALT 17 (6-50) U/L Alkaline Phosphatase 65 (38-126) U/L Total Protein 7.5 (6.3-8.2) g/dL Albumin 4.4 (3.5-5.1) g/dL Patient Weight 07/31/24 23:59 Weight 62.8 kg
[2024-07-31 17:02] LABS: Troponin I < 0.012 ng/mL (0.000-0.034)
[2024-08-01] VITALS (10 sets, daily range): BP systolic 105–127; BP diastolic 65–73; PULSE 57–67; RESP 16–18; TEMP 36.5–37; O2SAT 97–99
--- NOTE | 2024-08-01 | EST_ITS ---
Patient Info Name: Raman Marcum Age: 54 years : 1970 Gender: Male Ht: 72 in Wt: 138 lbs BSA: 1.77 m2 HR: 53 bpm BP: 146 / 80 mmHg Exam Date: 08/01/2024 6:38 AM Patient Status: I Admit Date: 07/31/2024 Exam Type: CA stress test treadmill w NM A nuclear stress test was performed. Staff Referring Physician: Esau Melendez Attending Provider: Pepito Araujo Nurse: Palma Arteaga Exercise Technologist: Frieda Nicholson Summary 1. No abnormal ST-T wave changes with maximal exercise. 2. Exercise capacity very good at >10 METS. 3. Please correlate with nuclear medicine images, reported separately. Protocol: Jalen Stress ECG Details Stage: REST Duration (min): 1 min : 33 sec Speed (mph): 0.0 Grade (%): 0 HR (bpm): 52 SBP (mmHg): 146 DBP (mmHg): 80 METS: --- Stage: REST Duration (min): 9 min : 8 sec Speed (mph): 0.0 Grade (%): 0 HR (bpm): 59 SBP (mmHg): 146 DBP (mmHg): 80 METS: --- Stage: STAGE 1 Duration (min): 1 min : 0 sec Speed (mph): 1.7 Grade (%): 10 HR (bpm): 80 SBP (mmHg): 146 DBP (mmHg): 80 METS: --- Stage: STAGE 1 Duration (min): 2 min : 0 sec Speed (mph): 1.7 Grade (%): 10 HR (bpm): 83 SBP (mmHg): 146 DBP (mmHg): 80 METS: --- Stage: STAGE 1 Duration (min): 3 min : 0 sec Speed (mph): 1.7 Grade (%): 10 HR (bpm): 84 SBP (mmHg): 146 DBP (mmHg): 80 METS: --- Stage: STAGE 2 Duration (min): 1 min : 0 sec Speed (mph): 2.5 Grade (%): 12 HR (bpm): 91 SBP (mmHg): 113 DBP (mmHg): 51 METS: --- Stage: STAGE 2 Duration (min): 2 min : 0 sec Speed (mph): 2.5 Grade (%): 12 HR (bpm): 96 SBP (mmHg): 115 DBP (mmHg): 55 METS: --- Stage: STAGE 2 Duration (min): 3 min : 0 sec Speed (mph): 2.5 Grade (%): 12 HR (bpm): 94 SBP (mmHg): 115 DBP (mmHg): 55 METS: --- Stage: STAGE 3 Duration (min): 1 min : 0 sec Speed (mph): 3.4 Grade (%): 14 HR (bpm): 107 SBP (mmHg): 115 DBP (mmHg): 55 METS: --- Stage: STAGE 3 Duration (min): 2 min : 0 sec Speed (mph): 3.4 Grade (%): 14 HR (bpm): 121 SBP (mmHg): 115 DBP (mmHg): 55 METS: --- Stage: STAGE 3 Duration (min): 3 min : 0 sec Speed (mph): 3.4 Grade (%): 14 HR (bpm): 120 SBP (mmHg): 141 DBP (mmHg): 72 METS: --- Stage: STAGE 4 Duration (min): 1 min : 0 sec Speed (mph): 4.2 Grade (%): 16 HR (bpm): 144 SBP (mmHg): 141 DBP (mmHg): 72 METS: --- Stage: STAGE 4 Duration (min): 1 min : 38 sec Speed (mph): 4.2 Grade (%): 16 HR (bpm): 154 SBP (mmHg): 193 DBP (mmHg): 77 METS: --- Stage: RECOVERY Duration (min): 0 min : 22 sec Speed (mph): 1.5 Grade (%): 0 HR (bpm): 146 SBP (mmHg): 193 DBP (mmHg): 77 METS: --- Stage: RECOVERY Duration (min): 1 min : 22 sec Speed (mph): 0.0 Grade (%): 0 HR (bpm): 102 SBP (mmHg): 193 DBP (mmHg): 77 METS: --- Stage: RECOVERY Duration (min): 2 min : 22 sec Speed (mph): 0.0 Grade (%): 0 HR (bpm): 91 SBP (mmHg): 193 DBP (mmHg): 77 METS: --- Stage: RECOVERY Duration (min): 3 min : 22 sec Speed (mph): 0.0 Grade (%): 0 HR (bpm): 86 SBP (mmHg): 163 DBP (mmHg): 80 METS: --- Stage: RECOVERY Duration (min): 4 min : 22 sec Speed (mph): 0.0 Grade (%): 0 HR (bpm): 79 SBP (mmHg): 163 DBP (mmHg): 80 METS: --- Stage: RECOVERY Duration (min): 4 min : 56 sec Speed (mph): 0.0 Grade (%): 0 HR (bpm): 83 SBP (mmHg): 127 DBP (mmHg): 82 METS: --- Rest HR: 59 bpm Peak HR: 155 bpm Rest Sys BP: 146 mmHg Peak Sys BP: 193 mmHg Max Pred HR: 167 bpm % Max Pred HR: 93 % Target HR: 142 bpm Max RPP: 29,915 bpm*mmHg Mckee Score: -2 Target HR Summary: Patient's target heart rate was achieved BP Response: Normal blood pressure response Max ST Seg Deviation: 2.50 mm Total Time: 10 min : 38 sec Rest Hanks BP: 80 mmHg Peak Hanks BP: 77 mmHg Angina Score: None Total METS: 12.1 Resting ECG Sinus bradycardia. No ischemic ST T wave changes. Stress ECG No ischemic ST T wave changes. Arrhythmias No arrhythmia. Report Signatures
--- NOTE | 2024-08-01 | ECHO_ITS ---
Patient Info Name: Raman Marcum Age: 54 years : 1970 Gender: Male Ht: 72 in Wt: 138 lbs BSA: 1.77 m2 HR: 67 bpm BP: 116 / 73 mmHg Heart Rhythm: Sinus Rhythm Technical Quality: Good Exam Date: 08/01/2024 1:05 PM Patient Status: I Admit Date: 07/31/2024 Exam Type: CA echo doppler color flow Complete two-dimensional, color flow and Doppler transthoracic echocardiogram is performed. Staff Referring Physician: Esau Melendez Sales Driver: Frieda Nicholson Attending Provider: Pepito Araujo Summary 1. Complete two-dimensional, color flow and Doppler transthoracic echocardiogram is performed. 2. There is normal biventricular size and systolic function. 3. There are no significant valvular abnormalities. Left Ventricle The left ventricle is normal in size and systolic function. There is concentric left ventricular remodeling. The left ventricular ejection fraction is visually estimated to be 60-65%. Right Ventricle The right ventricle is normal in size and systolic function. Left Atria The left atrium is normal size. Right Atria The right atrium is normal size. Atrial Septum The atrial septum is not well visualized. Aortic Valve The aortic valve is trileaflet and opens well. There is no aortic regurgitation. Pulmonic Valve The pulmonic valve is grossly normal. There is no pulmonic valve regurgitation. Mitral Valve The mitral valve is normal. There is no mitral regurgitation. Tricuspid Valve The tricuspid valve is normal. There is trace tricuspid regurgitation. Pericardium/Pleural Pericardium is normal in appearance with no evidence for significant pericardial effusion. Inferior Vena Cava Normal inferior vena cava with >50% collapse upon inspiration consistent with normal right atrial pressure, 3 mmHg. Aorta The aortic root at the level of the sinus of Valsalva measures 2.6 cm in diameter. Left Ventricular Outflow Tract Name Value Normal LVOT 2D LVOT Diameter 2.0 cm LVOT Doppler LVOT Peak Velocity 88 cm/s LVOT Peak Gradient 3 mmHg LVOT Mean Gradient 2 mmHg LVOT VTI 16 cm LVOT VTI/AV VTI Ratio 0.7 LVOT Stroke Volume 50 ml LVOT CO 2.6 l/min LVOT CI 1.5 l/min/m2 Pulmonic Valve Name Value Normal RVOT Doppler RVOT Peak Velocity 63 cm/s RVOT Peak Gradient 2 mmHg PV Doppler PV Peak Velocity 95 cm/s PV Peak Gradient 4 mmHg Mitral Valve Name Value Normal MV Diastolic Function MV E Peak Velocity 76 cm/s MV A Peak Velocity 70 cm/s MV E/A 1.1 MV Decel Time (PW) 219 ms MV Annular TDI MV E/e' (Septal) 7.5 MV E/e' (Lateral) 8.2 MV E/e' (Average) 7.9 Tricuspid Valve Name Value Normal TV Regurgitation Doppler TR Peak Velocity 187 cm/s TR Peak Gradient 14 mmHg Estimated PAP/RSVP RA Pressure 3 mmHg <=5 PA Systolic Pressure 17 mmHg <36 RV Systolic Pressure 17 mmHg <36 TV Annular TDI TV Lateral Diamond s' Velocity 13.1 cm/s >=9.5 Aorta Name Value Normal Ascending Aorta Ao Root Diameter (MM) 2.9 cm Ao Root Diam Index (MM) 1.6 cm/m2 Aortic Valve Name Value Normal AV Doppler AV Peak Velocity 136 cm/s AV Peak Gradient 7 mmHg AV Mean Gradient 4 mmHg AV VTI 25 cm AV Area (Cont Eq VTI) 2.0 cm2 >=3.0 AV Area (Cont Eq Crow) 2.0 cm2 AV DI (Crow) 0.64 AV Regurgitation 2D LVOT Area 3.0 cm2 Ventricles Name Value Normal LV Dimensions 2D/MM IVS Diastolic Thickness (2D) 1.1 cm 0.6-1.0 LVID Diastole (2D) 3.8 cm 4.2-5.8 LVIW Diastolic Thickness (2D) 1.0 cm 0.6-1.0 LVID Systole (2D) 2.4 cm 2.5-4.0 LVOT Diameter 2.0 cm LV Mass (2D Cubed) 129.73 g 88.00-224.00 LV Mass Index (2D Cubed) 73 g/m2 49-115 Relative Wall Thickness (2D) 0.54 <=0.42 LV Fractional Shortening/Ejection Fraction 2D/MM LV Fractional Shortening (2D) 36 % 25-43 LV EF (2D Teichholz) 66 % LV Diastolic Volume (4C MOD) 64 ml LV EF (4C MOD) 61 % LV Diastolic Volume (2C MOD) 57 ml LV EF (2C MOD) 61 % LV Diastolic Volume (BP MOD) 61 ml 62-150 LV Diastolic Volume Index (BP MOD) 35 ml/m2 34-74 LV Systolic Volume (BP MOD) 24 ml 21-61 LV Systolic Volume Index (BP MOD) 14 ml/m2 11-31 LV EF (BP MOD) 61 % 52-72 LV Diastolic Length (4C) 8.1 cm LV Systolic Length (4C) 6.8 cm LV Stroke Volume (4C MOD) 39 ml Atria Name Value Normal LA Dimensions LA Dimension (MM) 3.4 cm 3.0-4.0 LA Volume (4C A-L) 23 ml LA Volume (BP A-L) 31 ml RA Dimensions RA Area (4C) 11.9 cm2 <=18.0 Report Signatures
[2024-08-01 05:08] LABS: Basophils Absolute Auto 0.1 K/mm3 (0.0-0.1); Basophils Percent Auto 1.3 % (0.2-1.2); Eosinophils Absolute Auto 0.4 K/mm3 (0-0.3); Eosinophils Percent Auto 4.8 % (0-4.4); Hematocrit 42.6 % (42.0-52.0); Hemoglobin 14.2 g/dL (14.0-18.0); Immature Granulocyte Absolute 0.01 K/mm3 (0.00-0.031); Immature Granulocyte Percent A 0.1 % (0-0.5); Lymphocytes Absolute Auto 2.89 K/mm3 (0.9-3.2); Lymphocytes Percent Auto 37.6 % (18.3-44.2); Mean Corpuscular HGB Conc 33.3 g/dl (32-36); Mean Corpuscular Hemoglobin 29.5 pg (26-34); Mean Corpuscular Volume 88.6 fl (80-100); Mean Platelet Volume 9.6 fl (7.4-10.4); Monocytes Absolute Auto 0.6 K/mm3 (0.1-0.6); Monocytes Percent Auto 8.3 % (2.6-8.5); Neutrophils Absolute Auto 3.7 K/mm3 (1.3-6.7); Neutrophils Percent Auto 47.9 % (45.5-73.1); Platelet Count Result 218 k/mm3 (150-375); Red Blood Count 4.81 M/mm3 (4.6-6.20); Red Cell Distribution Width 12.8 % (11.5-14.5); White Blood Count 7.7 K/mm3 (4.5-10.0)
[2024-08-01 05:23] LABS: Anion Gap 6 mmol/L (4-12); Blood Urea Nitrogen 17 mg/dL (9-20); Calcium 9.1 mg/dL (8.4-10.2); Carbon Dioxide 23 mmol/L (22-30); Chloride 109 mmol/L (98-107); Cholesterol 183 mg/dL (0-200); Estimated CRCL calculation 70 ml/min; Estimated Glomerular Filt Rate > 60; Glucose 120 mg/dL (65-110); HDL Direct 34 mg/dL; Potassium 3.9 mmol/L (3.4-5.0); Sodium 138 mmol/L (137-145); Triglycerides 325 mg/dL (<150)
[2024-08-01 05:30] LABS: LDL Cholesterol Direct 101 mg/dL
--- NOTE | 2024-08-01 07:54 | P.PNIM_ITS ---
Progress Note: A&P Assessment and Plan (1) Chest pain: Qualifiers: Chest pain type: unspecified Qualified Code(s): R07.9 - Chest pain, unspecified Code(s): R07.9 - Chest pain, unspecified Status: Acute Assessment and Plan: Heart score 4 Cardiology consulted Trend troponins with EKGs Nitro brett Okay for diet now, NPO midnight Lipid panel Echo pending Stress test pending NM stress test pending (2) Smoker: Code(s): F17.200 - Nicotine dependence, unspecified, uncomplicated Status: Acute Assessment and Plan: Nicotine patch Subjective Date/time seen: 08/01/24 07:54 Interval history: 54-year-old male previously healthy presents the emergency room with chest pain and pressure Review of Systems Review of Systems: 12 systems were reviewed and are negativ e except for as per HPI. Exam Narrative: General: well appearing, appears stated age. HEENT: normocephalic, atraumatic. Mucous membranes moist. EOMI, PERRLA, bilateral sclera anicteric, no conjunctival injection. Neck supple without JVD, lymphadenopathy, or bruit. Respiratory: clear to ascultation bilaterally. No rales/rhonic/wheezes. Cardiovascular: Regular rate and rhythm, normal S1-S2 upon ascultation. No murmurs, rubs, or clicks. PMI is nondisplaced, capillary refill less than 3 second. Abdomen: Soft, round, no pulsatile masses, nondistended and nontender. No rebound, no guarding. No CVA tenderness, no hepatosplenomegaly. Bowel sounds present to all four quadrants. No high pitch or tinkling sounds, resonant to percussion. Extremities: No cyanosis, clubbing, or edema present. Pulses are palpable 2/2. Active ROM to all four extremities. Neuro: Alert and orientated x 4. PERRLA. Cranial nerves 2-12 intact without focal deficit. Skin: Warm, dry, and intact, without rash, erythema, or lesion. Psych: pleasant, cooperative, normal speech, normal affect, no hallucinations, no dysarthia Objective Data Vital Signs Vital Signs: Vital Signs - 24 hr 07/31/24 10:30 07/31/24 10:30 07/31/24 11:31 Temperature 97.9 F Pulse Rate 69 65 Respiratory Rate 20 20 Blood Pressure 137/93 H 125/87 Pulse Oximetry 99 97 Oxygen Delivery Room Air Room Air 07/31/24 12:30 07/31/24 12:45 07/31/24 12:47 Temperature Pulse Rate 60 61 61 Respiratory Rate 20 20 20 Blood Pressure 118/86 131/89 Pulse Oximetry 99 100 99 Oxygen Delivery 07/31/24 13:11 07/31/24 14:00 07/31/24 15:44 Temperature 98 F 97.9 F Pulse Rate 65 56 L 72 Respiratory Rate 18 18 Blood Pressure 106/77 119/65 Pulse Oximetry 100 99 Oxygen Delivery 07/31/24 16:00 07/31/24 18:00 07/31/24 20:00 Temperature Pulse Rate 62 66 67 Respiratory Rate 18 Blood Pressure Pulse Oximetry 99 Oxygen Delivery Room Air 07/31/24 20:00 07/31/24 20:00 07/31/24 23:00 Temperature 98 F Pulse Rate 67 58 L 51 L Respiratory Rate 16 Blood Pressure 104/62 Pulse Oximetry 98 Oxygen Delivery 08/01/24 00:00 08/01/24 00:00 08/01/24 00:00 Temperature 98 F Pulse Rate 57 L 65 Respiratory Rate 16 Blood Pressure 119/67 Pulse Oximetry 98 Oxygen Delivery Room Air 08/01/24 04:00 08/01/24 04:00 08/01/24 04:00 Temperature 97.7 F Pulse Rate 67 67 67 Respiratory Rate 16 16 Blood Pressure 116/73 Pulse Oximetry 98 98 Oxygen Delivery Room Air 08/01/24 06:00 08/01/24 07:49 Temperature 98.0 F Pulse Rate 67 62 Respiratory Rate 18 Blood Pressure 107/65 Pulse Oximetry 97 Oxygen Delivery Intake/Output Intake/Output: Intake & Output 07/29/24 07/30/24 07/31/24 08/01/24 23:59 23:59 23:59 23:59 Intake Total 440 850 Balance 440 850 Meds/Results Medications: Active Medications Generic Name Dose Route Start Last Admin Trade Name Freq PRN Reason Stop Dose Admin Acetaminophen 650 mg 07/31/24 13:03 Acetaminophen 325 Mg Tablet PO Q4H PRN Mild Pain (1-3) Al Hydrox/Mg Hydrox/Simethicone 30 ml 07/31/24 13:03 Mag Hydrox/Al Hydrox/Simeth 30 Ml Udc PO Q6H PRN Indigestion Aspirin 81 mg 08/01/24 08:00 Aspirin 81 Mg Chewable Tablet PO DAILY@0800 MOLLY Enoxaparin Sodium 40 mg 08/01/24 09:00 Enoxaparin 40 Mg/0.4 Ml Syringe SUB-Q DAILY [facility] Morphine Sulfate 2 mg 07/31/24 12:08 Morphine Sulfate (*Crx) 2 Mg/Ml Inj IV PUSH Q2H PRN Pain Rated 7-10 Nicotine 1 patch 08/01/24 09:00 Nicotine (*Pbkc) 21 Mg Patch TRANSDERM DAILY [facility] Nitroglycerin 0.4 mg 07/31/24 13:03 Nitroglycerin Sl 0.4 Mg Tablet SUBLINGUAL Q5MIN PRN Chest Pain Ondansetron HCl 4 mg 07/31/24 12:08 Ondansetron Inj 4 Mg/2 Ml Vial IV PUSH Q4H PRN Nausea Perflutren Lipid Microsphere 0 ml 07/31/24 16:58 Perflutren Lipid Microspheres 1.5 Ml Vial Diluted To 10 Ml Total Volume IV PUSH 08/03/24 16:59 ONCE PRN adequate visualization Protocol Radiology Results: ITS Impressions Chest X-Ray 07/31/24 11:06 IMPRESSION: 1: NO ACUTE CARDIOPULMONARY DISEASE. Labs Labs: Laboratory Results - last 24 hr 07/31/24 07/31/24 07/31/24 10:33 10:34 13:50 WBC 8.2 RBC 5.05 Hgb 14.8 Hct 43.4 MCV 85.9 MCH 29.3 MCHC 34.1 RDW 12.8 Plt Count 226 MPV 9.1 Immature Gran % (Auto) 0.2 Neut % (Auto) 58.0 Lymph % (Auto) 31.7 [place] % (Auto) 6.3 Eos % (Auto) 2.9 Baso % (Auto) 0.9 Lymph # (Auto) 2.61 [place] # (Auto) 0.5 Eos # (Auto) 0.2 Baso # (Auto) 0.1 Abs Immat Gran (auto) 0.02 Absolute Neuts (auto) 4.8 Absolute Nucleated RBC 0.000 Nucleated RBC % 0.0 PT 13.2 INR 1.0 APTT 29.0 Sodium 137 Potassium 4.4 Chloride 105 Carbon Dioxide 25 Anion Gap 7 BUN 13 D Creatinine 0.90 Estim Creat Clear Calc 79 Estimated GFR > 60 Glucose 102 Calcium 9.6 Total Bilirubin 0.5 AST 23 ALT 17 Alkaline Phosphatase 65 Troponin I < 0.012 < 0.012 Total Protein 7.5 Albumin 4.4 Triglycerides Cholesterol LDL Cholesterol Direct HDL Direct Lipase 96 07/31/24 08/01/24 16:33 04:29 WBC 7.7 RBC 4.81 Hgb 14.2 Hct 42.6 MCV 88.6 MCH 29.5 MCHC 33.3 RDW 12.8 Plt Count 218 MPV 9.6 Immature Gran % (Auto) 0.1 Neut % (Auto) 47.9 Lymph % (Auto) 37.6 [place] % (Auto) 8.3 Eos % (Auto) 4.8 H Baso % (Auto) 1.3 H Lymph # (Auto) 2.89 [place] # (Auto) 0.6 Eos # (Auto) 0.4 H Baso # (Auto) 0.1 Abs Immat Gran (auto) 0.01 Absolute Neuts (auto) 3.7 Absolute Nucleated RBC 0.000 Nucleated RBC % 0.0 PT INR APTT Sodium 138 Potassium 3.9 Chloride 109 H Carbon Dioxide 23 Anion Gap 6 BUN 17 Creatinine 0.96 Estim Creat Clear Calc 70 Estimated GFR > 60 Glucose 120 H Calcium 9.1 Total Bilirubin AST ALT Alkaline Phosphatase Troponin I < 0.012 Total Protein Albumin Triglycerides 325 H Cholesterol 183 LDL Cholesterol Direct 101 HDL Direct 34 Lipase Quality VTE Prophylaxis VTE prophylaxis: mechanical ordered and pharmacologic ordered Hospitalist MIPS Advance Care Plan I have confirmed that the patient's Advanced Care Plan is present, code status is documented, or surrogate decision maker is listed in patient medical record.: Yes Medication Reconciliation I have utilized all available resources to obtain, update and review the patients current medications (includes all prescriptions, OTC, herbals, cannabis, and nutritional supplements).: Yes
[2024-08-01] MEDS: ENOXAPARIN 40 MG/0.4 ML SYRINGE SUB-Q (08:12)
[2024-08-01] MEDS: ASPIRIN 81 MG CHEWABLE TABLET PO (08:12)
--- NOTE | 2024-08-01 12:00 | PM.PNCARD ---
Progress Note: A&P Assessment and Plan (1) Chest pain: Qualifiers: Chest pain type: unspecified Qualified Code(s): R07.9 - Chest pain, unspecified Code(s): R07.9 - Chest pain, unspecified Status: Acute (2) Heart palpitations: Code(s): R00.2 - Palpitations Status: Acute (3) Tobacco abuse: Code(s): Z72.0 - Tobacco use Status: Acute Plan 54-year-old smoker presents with chest pain Chest pain -has since resolved and troponins negative -we had discussed inpatient versus outpatient ischemic evaluation -if stress test is negative, he can discharge today. Active tobacco abuse -we have discussed the need for tobacco cessation for 3 minutes -currently he does not want to start any medications to help with cessation Premature ventricular contractions -based on subjective history, the skipped heartbeats that he mention sound similar to premature ventricular contractions -we discussed that should he have further episodes of these and the above testing is negative and if these symptoms become more frequent, we can discuss in outpatient setting pursuing 30 day Holter monitor -his heart rate does not allow for addition of beta-tiffanie at this time Subjective Date/time seen: 08/01/24 12:00 Interval history: Cardiology follow up visit Feels well today and has no complaints. Completed treadmill stress test with no chest pain and had good exercise tolerance. Review of Systems Cardiovascular: Cardiovascular: Reports as per HPI Respiratory: Respiratory: Reports as per HPI Exam Const: General: comfortable Orientation/consciousness: patient oriented x3 HENMT: Head: normal to inspection Mouth: Yes moist mucous membranes Eyes: General: appearance normal, both eyes and all related structures Pupils: Equal, round and reactive pupils present EOM: EOMs intact bilaterally Neck: Neck: no JVD Carotids: normal carotid upstroke Resp: Effort & Inspection: normal respiratory effort Auscultation: clear to auscultation bilaterally Cardio: Rate: regular rate Rhythm: regular rhythm Heart sounds: S1 normal heart sound present, S2 normal heart sound present and no murmurs GI: Auscultation: normal bowel sounds Skin: General skin exam: normal color Neuro: General: patient oriented x3 Cranial nerves: Yes Equal, round and reactive pupils present Speech: normal speech Extrem: General: no pedal edema Psych: Appearance: grossly normal Mental Status: mental status grossly normal Objective Data Vital Signs Vital Signs: Vital Signs - 24 hr 07/31/24 12:30 07/31/24 12:45 07/31/24 12:47 Temperature Pulse Rate 60 61 61 Respiratory Rate 20 20 20 Blood Pressure 118/86 131/89 Pulse Oximetry 99 100 99 Oxygen Delivery 07/31/24 13:11 07/31/24 14:00 07/31/24 15:44 Temperature 36.6 C 36.6 C Pulse Rate 65 56 L 72 Respiratory Rate 18 18 Blood Pressure 106/77 119/65 Pulse Oximetry 100 99 Oxygen Delivery 07/31/24 16:00 07/31/24 18:00 07/31/24 20:00 Temperature Pulse Rate 62 66 67 Respiratory Rate 18 Blood Pressure Pulse Oximetry 99 Oxygen Delivery Room Air 07/31/24 20:00 07/31/24 20:00 07/31/24 23:00 Temperature 36.6 C Pulse Rate 67 58 L 51 L Respiratory Rate 16 Blood Pressure 104/62 Pulse Oximetry 98 Oxygen Delivery 08/01/24 00:00 08/01/24 00:00 08/01/24 00:00 Temperature 36.6 C Pulse Rate 57 L 65 Respiratory Rate 16 Blood Pressure 119/67 Pulse Oximetry 98 Oxygen Delivery Room Air 08/01/24 04:00 08/01/24 04:00 08/01/24 04:00 Temperature 36.5 C Pulse Rate 67 67 67 Respiratory Rate 16 16 Blood Pressure 116/73 Pulse Oximetry 98 98 Oxygen Delivery Room Air 08/01/24 06:00 08/01/24 07:49 08/01/24 08:00 Temperature 36.7 C Pulse Rate 67 62 65 Respiratory Rate 18 Blood Pressure 107/65 Pulse Oximetry 97 Oxygen Delivery 08/01/24 11:56 Temperature 37.0 C Pulse Rate 61 Respiratory Rate 16 Blood Pressure 127/71 Pulse Oximetry 99 Oxygen Delivery Intake/Output Intake/Output: Intake & Output 07/29/24 07/30/24 07/31/24 08/01/24 23:59 23:59 23:59 23:59 Intake Total 440 850 Balance 440 850 Meds/Results Medications: Active Medications Generic Name Dose Route Start Last Admin Trade Name Freq PRN Reason Stop Dose Admin Acetaminophen 650 mg 07/31/24 13:03 Acetaminophen 325 Mg Tablet PO Q4H PRN Mild Pain (1-3) Al Hydrox/Mg Hydrox/Simethicone 30 ml 07/31/24 13:03 Mag Hydrox/Al Hydrox/Simeth 30 Ml Udc PO Q6H PRN Indigestion Aspirin 81 mg 08/01/24 08:00 08/01/24 08:12 Aspirin 81 Mg Chewable Tablet PO 81 mg DAILY@0800 MOLLY Administration Enoxaparin Sodium 40 mg 08/01/24 09:00 08/01/24 08:12 Enoxaparin 40 Mg/0.4 Ml Syringe SUB-Q 40 mg DAILY [facility] Administration Morphine Sulfate 2 mg 07/31/24 12:08 Morphine Sulfate (*Crx) 2 Mg/Ml Inj IV PUSH Q2H PRN Pain Rated 7-10 Nicotine 1 patch 08/01/24 09:00 Nicotine (*Pbkc) 21 Mg Patch TRANSDERM DAILY [facility] Nitroglycerin 0.4 mg 07/31/24 13:03 Nitroglycerin Sl 0.4 Mg Tablet SUBLINGUAL Q5MIN PRN Chest Pain Ondansetron HCl 4 mg 07/31/24 12:08 Ondansetron Inj 4 Mg/2 Ml Vial IV PUSH Q4H PRN Nausea Perflutren Lipid Microsphere 0 ml 07/31/24 16:58 Perflutren Lipid Microspheres 1.5 Ml Vial Diluted To 10 Ml Total Volume IV PUSH 08/03/24 16:59 ONCE PRN adequate visualization Protocol Radiology Results: ITS Impressions Chest X-Ray 07/31/24 11:06 IMPRESSION: 1: NO ACUTE CARDIOPULMONARY DISEASE. Labs Labs: Laboratory Results - last 24 hr 07/31/24 07/31/24 08/01/24 13:50 16:33 04:29 WBC 7.7 RBC 4.81 Hgb 14.2 Hct 42.6 MCV 88.6 MCH 29.5 MCHC 33.3 RDW 12.8 Plt Count 218 MPV 9.6 Immature Gran % (Auto) 0.1 Neut % (Auto) 47.9 Lymph % (Auto) 37.6 Foster % (Auto) 8.3 Eos % (Auto) 4.8 H Baso % (Auto) 1.3 H Lymph # (Auto) 2.89 Foster # (Auto) 0.6 Eos # (Auto) 0.4 H Baso # (Auto) 0.1 Abs Immat Gran (auto) 0.01 Absolute Neuts (auto) 3.7 Absolute Nucleated RBC 0.000 Nucleated RBC % 0.0 Sodium 138 Potassium 3.9 Chloride 109 H Carbon Dioxide 23 Anion Gap 6 BUN 17 Creatinine 0.96 Estim Creat Clear Calc 70 Estimated GFR > 60 Glucose 120 H Calcium 9.1 Troponin I < 0.012 < 0.012 Triglycerides 325 H Cholesterol 183 LDL Cholesterol Direct 101 HDL Direct 34
--- NOTE | 2024-08-01 16:26 | P.DS_ITS ---
DS: Admitting Diagnosis Discharge Date 0 08/01/2024 Admitting Diagnosis Chest pain DS: Discharge Diagnosis Discharge Diagnosis (1) Chest pain: Qualifiers: Chest pain type: unspecified Qualified Code(s): R07.9 - Chest pain, unspecified Code(s): R07.9 - Chest pain, unspecified Status: Acute Assessment and Plan: Heart score 4 Cardiology consulted Trend troponins with EKGs Nitro p.r.n. Patient underwent stress test which is negative Echo shows left ventricular ejection fraction 60-65% Stress test and NM stress test shows no abnormalities (2) Smoker: Code(s): F17.200 - Nicotine dependence, unspecified, uncomplicated Status: Acute Assessment and Plan: Nicotine patch DS: Summary Hospital Course Hospital Course: 54-year-old male previously healthy presents the emergency room with chest pain and pressure. Patient states that he has had chest pain or pressure for about the last 4 years. 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 It lasted longer than normal. He states that he became very concerned because it has been happening more frequently and more intense and now at rest and started with activities. Patient denies diaphoresis, nausea vomiting, left arm pain. In the patient's lab work showed CBC within normal limits, BMP within normal limits, 1st troponin negative, chest x-ray with no cardiopulmonary process. EKG shows sinus rhythm with incomplete right bundle-branch block and left anterior fascicular block Patient's heart score is 4 and Cardiology recommends admission for cardiac workup. Patient was evaluated at bedside. Patient reports he has intermittent chest pain randomly either at rest or work or driving for past 4 years. Patient has PCP but the does not closely follow-up. Patient smokes cigarettes and vaping. Patient was evaluated by the Cardiology and underwent stress test with nuclear medicine which shows no significant abnormalities. On the day of discharge, the patient was seen and examined. Vital signs were stable. Physical exam were stable and labs were reviewed at length. Discharge instructions, medications, and follow-up appointments were discussed with the patient at length and all day questions were answered. ER warnings were given. Status at Discharge Cognitive/behavioral status at discharge: Stable Time Spent with Patient Time attestation: Total time spent providing and/or coordinating discharge services: 45 minutes Exam Narrative: General: well appearing, appears stated age. HEENT: normocephalic, atraumatic. Mucous membranes moist. EOMI, PERRLA, bilateral sclera anicteric, no conjunctival injection. Neck supple without JVD, lymphadenopathy, or bruit. Respiratory: clear to ascultation bilaterally. No rales/rhonic/wheezes. Cardiovascular: Regular rate and rhythm, normal S1-S2 upon ascultation. No murmurs, rubs, or clicks. PMI is nondisplaced, capillary refill less than 3 second. Abdomen: Soft, round, no pulsatile masses, nondistended and nontender. No rebound, no guarding. No CVA tenderness, no hepatosplenomegaly. Bowel sounds present to all four quadrants. No high pitch or tinkling sounds, resonant to percussion. Extremities: No cyanosis, clubbing, or edema present. Pulses are palpable 2/2. Active ROM to all four extremities. Neuro: Alert and orientated x 4. PERRLA. Cranial nerves 2-12 intact without focal deficit. Skin: Warm, dry, and intact, without rash, erythema, or lesion. Psych: pleasant, cooperative, normal speech, normal affect, no hallucinations, no dysarthia DS: Data Data Completed and Pending Labs on day of discharge: Labs from last 24 hours 08/01/24 07/31/24 04:29 16:33 WBC 7.7 RBC 4.81 Hgb 14.2 Hct 42.6 MCV 88.6 MCH 29.5 MCHC 33.3 RDW 12.8 Plt Count 218 MPV 9.6 Immature Gran % (Auto) 0.1 Neut % (Auto) 47.9 Lymph % (Auto) 37.6 Ray % (Auto) 8.3 Eos % (Auto) 4.8 H Baso % (Auto) 1.3 H Lymph # (Auto) 2.89 Ray # (Auto) 0.6 Eos # (Auto) 0.4 H Baso # (Auto) 0.1 Abs Immat Gran (auto) 0.01 Absolute Neuts (auto) 3.7 Absolute Nucleated RBC 0.000 Nucleated RBC % 0.0 Sodium 138 Potassium 3.9 Chloride 109 H Carbon Dioxide 23 Anion Gap 6 BUN 17 Creatinine 0.96 Estim Creat Clear Calc 70 Estimated GFR > 60 Glucose 120 H Calcium 9.1 Troponin I < 0.012 Triglycerides 325 H Cholesterol 183 LDL Cholesterol Direct 101 HDL Direct 34 Imaging Radiologist's impression: ITS Impressions Chest X-Ray 07/31/24 11:06 IMPRESSION: 1: NO ACUTE CARDIOPULMONARY DISEASE. Pharmacological Stress Test 08/01/24 14:02 IMPRESSION: 1. Normal myocardial perfusion at rest and during stress. 2. Left ventricular ejection fraction measuring >70%. Discharge Plan Discharge Attending physician on discharge: Rodrigo Rubin Consulting providers: Esau Melendez; Damián Gregory Discharging Clinician: Rodrigo Rubin Anticipated Discharge Date/Time: 08/01/24 16:35 Patient Disposition: Home Activity: as tolerated Diet: heart healthy Discharge Instructions: Order lipid panel and HbA1c and please follow-up the results with the PCP Patient needs to closely follow up with Cardiology and PCP Check blood pressure 1 to 2 times a day. Record and bring into your doctor for review. Call your doctor if your blood pressure is greater than 180/110 or less than 90/45. Walk with cane or other assist device. Take precautions to avoid falls. Rise slowly from a lying or sitting position. Pause before standing or walking. Contact your doctor or call 911 and come to the Emergency Room if you have any type of trauma, lightheadedness with standing or other worrisome symptoms. Avoid NSAIDs (ibuprofen, naproxen, Aleve). Tylenol is safe to take. Follow-up with your primary care provider in 1-2 weeks. Please call for appointment. Follow-up with Cardiology in 2-4 weeks. Please call for an appointment. Thank you for using [facility] for your health care needs. Patient Instructions: Antibiotic Form Patient Language: Estonian Stand Alone Forms: General Discharge Information Follow-up/Referrals: Esau Melendez MD [Physician] - Damián Gregory DO [Primary Care Provider] - Discharge Medications: New aspirin 81 mg capsule 81 mg PO DAILY Qty: 30 0RF nitroglycerin [Nitrostat] 0.4 mg Tablet, Sublingual 0.4 mg sublingual Q5MIN PRN (Reason: Chest Pain) Qty: 30 0RF Other Ambulatory Orders: Hemoglobin A1C (Routine) Timeframe: 1 Week Location: Determined by Patient Ordered By: Rodrigo Rubin Lipid Panel (Routine) Timeframe: 1 Week Location: Determined by Patient Ordered By: Rodrigo Rubin Date of admission: 07/31/24 12:08 Primary Care Provider: Damián Gregory Admitting Provider: Pepito Araujo Attending physician on admission: Pepito Araujo Condition: Stable
== END 2024-08-01 17:32 | disposition home or self-care (01) ==
LOC: ANHED 12:12 → ANHIMU 15:46
PROVIDERS: Nurse Practitioner Gerontology; Admitting Provider Internal Medicine; Emergency Provider Preventive Medicine Aerospace Medicine; PCP Internal Medicine; Visit Provider General Practice
DX: R07.9 Chest pain, unspecified (principal); R00.2 Palpitations; F17.210 Nicotine dependence, cigarettes, uncomplicated
CPT/HCPCS: 36415; 71046; 78452; 80048; 80053; 80061; 83690; 84484; 85025; 85610; 85730; 93005; 93017; 93306; 96372; 96374; 96375; 99285; A9270; A9502; G0378; J1650

== ENCOUNTER 2024-08-12 09:48 | Outpatient (CLI) | payer OTHER, SELFPAY ==
[2024-08-12 13:36] LABS: Cholesterol 201 mg/dL (0-200); HDL Direct 39 mg/dL; Triglycerides 146 mg/dL (<150)
[2024-08-12 13:48] LABS: LDL Cholesterol Direct 108 mg/dL
[2024-08-12 14:01] LABS: Prostate Specific Antigen 0.4 ng/mL (< OR = 4.0)
[2024-08-12 14:10] LABS: Hemoglobin A1C 5.4 % (<5.7)
== END 2024-08-12 09:49 | disposition home or self-care (01) ==
LOC: ANHGOSHLAB 09:49
PROVIDERS: PCP Internal Medicine; Visit Provider Clinical Nurse Specialist
DX: R00.2 Palpitations (principal); Z12.5 Encounter for screening for malignant neoplasm of prostate; E78.1 Pure hyperglyceridemia; R73.01 Impaired fasting glucose
CPT/HCPCS: 36415; 80061; 83036; 84153; 84443; G0103

== ENCOUNTER 2024-08-21 15:44 | Outpatient (CLI) | payer OTHER, SELFPAY ==
--- NOTE | ~2024-08-21 | CT_ITS ---
CT Scan of the Chest without Contrast: Clinical Indication: Lung cancer screening, nicotine dependence Technique: Contiguous sections were acquired throughout the chest without intravenous contrast. Dose reduction technique was used on this scan by utilizing automated exposure control and iterative recon struction technique. The dose-length product (DLP) was 51.91 mGy-cm. Findings: There is no evidence of any significant mediastinal, hilar or axillary lymphadenopathy. Coronary az ry calcifications are present. There is no evidence of pleural or pericardial effusion. . Right apical scarring and calcified nodules present. Calcified left upper lobe nodules present with adjacent scarring. Moderate to advanced emphysema is present. 4 mm right middle lobe nodule present (axial image 87). Images through the upper abdomen reveal no abnormalities. Impression: Lung RADS 2: Benign findings. 12 month follow-up screening CT advised. Reviewed, dictated and finalized at location . Impression: Lung RADS 2: Benign findings. 12 month follow-up screening CT advised.
== END 2024-08-21 15:45 | disposition home or self-care (01) ==
LOC: MICIMG 15:44
PROVIDERS: PCP Internal Medicine; Visit Provider Clinical Nurse Specialist
DX: Z12.2 Encounter for screening for malignant neoplasm of respiratory organs (principal); Z87.891 Personal history of nicotine dependence
CPT/HCPCS: 71271

== ENCOUNTER → 2024-12-30 15:31 | Outpatient (REF) | payer OTHER, SELFPAY ==
--- NOTE | 2024-12-30 15:31 | S_PTH ---
PATIENT: Raman Marcum LOC: [facility] #:[id number] AGE/SX: 54/M ROOM: RE12/30/[address]: Jae Laurent MD : [id number] BED: DIS: SPEC #: [id number] RECD: 12/31/24 07:05 STATUS: GRICELDA REBobbi #: [id number] NADIRA: 12/30/24 15:[address]: Jae Laurent DEPT: [facility] Surgical RECD BY: Arabella Vazquez ENTERED: 12/31/24 07:05 SP TYPE: Surgical OTHR DR: Damián Gregory DO Tissues: A - Cyst B - Cyst Procedures: Hematoxylin and Eosin Stain Gross and Microscopic Level 4
== END ==
LOC: ANHLAB 15:31
PROVIDERS: PCP Internal Medicine; Visit Provider Plastic Surgery
DX: L72.3 Sebaceous cyst (principal)
CPT/HCPCS: 88305